=== PATIENT | female | born 1945 | race Caucasian/White ===

== ENCOUNTER → 2016-12-26 | Day surgery (SDC) | payer MEDICARE ==
[~2016-12-26] MED LIST: ALBU0.63; ALBU17I; AZMACORT100 MCG; CALC600T34; CELE200; FEXO180; FLON0.053; HYDR200T42; LACTATED RINGER'S 1000 ML INJ 1,000 ML ONE; PROPOFOL 200 MG/20 ML AMP IV ONE; PYRI100T4; PYRI25TA9; TAB-TAB; TELM40; TOLT4; VITA10002; [UNRECOGNIZED DRUG - CODE]
--- NOTE | 2016-12-26 13:18 | GIPROC ---
[facility] [address] [facility] [place], [address] COLONOSCOPY PROCEDURE REPORT EXAM DATE: 12/26/2016 PATIENT NAME: Yessenia Rojo MR #: [id number] BIRTHDATE: 1945 ENDOSCOPIST: Daja Vickers MD ORDER #: [id number] UROLOGY NURSE: STATUS: outpatient INDICATIONS: The patient is a 71 yr old female here for a colonoscopy due to diarrhea, history of polyps PROCEDURE PERFORMED: Colonoscopy with biopsy MEDICATIONS: None and Per Anesthesia. PREP QUALITY: good PREP TYPE:Other: ESTIMATED BLOOD LOSS: None CONSENT: The patient understands the risks and benefits of the procedure and understands that these risks include, but are not limited to: sedation, allergic reaction, infection, perforation and/or bleeding. Alternative means of evaluation and treatment include, among others: physical exam, x-rays, and/or surgical intervention. The patient elects to proceed with this endoscopic procedure. medical equipment was checked for proper function. Hand hygiene and appropriate measures for infection prevention was taken. After the risks, benefits and alternatives of the procedure were thoroughly explained, Informed consent was verified, confirmed and timeout was successfully executed by the treatment team. A digital exam revealed hemorrhoids The EC-[id number] ([id number]) endoscope was introduced through the anus and advanced to the cecum, which was identified by both the appendix and ileocecal valve. The instrument was then slowly withdrawn as the colon was fully examined. COLON FINDINGS: Diverticulosis sigmoid , descending random biopsies from ascending and descending. Retroflexed views revealed internal hemorrhoids and Retroflexed views revealed medium internal hemorrhoids The scope was then completely withdrawn from the patient and the procedure terminated. PROCEDURE WITHDRAWAL TIME:6minutes ADVERSE EVENTS: There were no complications. IMPRESSIONS: 1. Diverticulosis sigmoid , descending random biopsies from ascending and descending 2. Retroflexed views revealed internal hemorrhoids 3. Retroflexed views revealed medium internal hemorrhoids 4. Revealed hemorrhoids RECOMMENDATIONS: 1. Await biopsy results. Biopsy results will not be ready for 7-10 days. If you don't hear from us in two weeks, call our office for results. 2. Benefiber 2 tsp daily 3. High fiber diet 4. Probiotics from any [facility] or health food store 5. Yearly rectal exams RECALL: Colonoscopy, pending biopsy results Daja Vickers MD eSigned: Daja Vickers MD 12/26/2016 1:17 PM cc: Adiel Barros and Stiven Lewis M.D.
--- NOTE | 2016-12-26 13:22 | GIPROC ---
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 TOPICAL ANESTHETIC: none CONSENT: The patient understands the risks and benefits of the procedure and understands that these risks include, but are not limited to: sedation, allergic reaction, infection, perforation and/or bleeding. Alternative means of evaluation and treatment include, among others: physical exam, x-rays, and/or surgical intervention. The patient elects to proceed with this endoscopic procedure. medical equipment was checked for proper function. Hand hygiene and appropriate measures for infection prevention was taken. After the risks, benefits and alternatives of the procedure were thoroughly explained, Informed consent was verified, confirmed and timeout was successfully executed by the treatment team. The patient was anesthetized with topical anesthesia and the EC-[id number] ([id number]) endoscope was introduced through the mouth and advanced to the second portion of the duodenum. Retroflexed views revealed a hiatal hernia The gastroscope was then slowly withdrawn and removed. Superficial ulcer/gastritis antrum-biopsy duodenum-biopsy esophagitis distal esophagus-biopsy gastric body polyps-biopsy. ADVERSE EVENTS: There were no complications. IMPRESSIONS: 1. Superficial ulcer/gastritis antrum-biopsy duodenum-biopsy esophagitis distal esophagus-biopsy gastric body polyps-biopsy 2. Retroflexed views revealed a hiatal hernia RECOMMENDATIONS: 1. Await biopsy results. Biopsy results will not be ready for 7-10 days. If you don't hear from us in two weeks, call our office for biopsy results. 2. Anti-reflux regimen 3. Continue PPI PATIENT CONDITION: stable DISPOSITION: Home REPEAT EXAM: EGD pending biopsy results Daja Vickers MD eSigned: Daja Vickers MD 12/26/2016 1:22 PM cc: Convention Services Director, [facility] Emma Lewis M.D. PATIENT NAME: Yessenia Rojo MR#: [id number]
== END | disposition home or self-care (01) ==
LOC: ESDC 10:54
PROVIDERS: ATTEND Internal Medicine Gastroenterology
DX: R19.7 Diarrhea, unspecified (principal); Z86.010 Personal history of colon polyps; K57.90 Diverticulosis of intestine, part unspecified, without perforation or abscess without bleeding; K64.8 Other hemorrhoids; K21.9 Gastro-esophageal reflux disease without esophagitis; K29.70 Gastritis, unspecified, without bleeding; K20.9 Esophagitis, unspecified; K31.7 Polyp of stomach and duodenum
CPT/HCPCS: 00740; 00810; 43239; 45380; 88305; J3010; J7120